=== PATIENT | female | born 1980 | race Caucasian/White ===

== ENCOUNTER 2016-08-07 17:12 | Emergency (ER) | payer OTHER | END 2016-08-07 18:25 | disposition home or self-care (01) | LOC: FER 17:12 | DX: S46.911A Strain of unspecified muscle, fascia and tendon at shoulder and upper arm level, right arm, initial encounter (principal); F17.210 Nicotine dependence, cigarettes, uncomplicated | CPT/HCPCS: 73030; J1885 ==

== ENCOUNTER 2020-05-30 10:26 | Emergency (ER) | payer OTHER ==
[2020-05-30 11:25] LABS: BASOPHIL 0.4 % (0-2); EOSINOPHIL 1.8 % (0-5); HCT 45.1 % (37.0-47.0); HGB 14.9 g/dl (12.5-16.0); LYMPHOCYTE 14.5 % (15-48); MCH 28.8 pg (25.0-31.0); MCV 87.1 fL (78.0-100.0); MONOCYTE 8.9 % (0-12); MPV 10.7 fL (6.0-9.5); NRBC 0; PLT 236 K/uL (150-400); RBC 5.18 M/uL (4.20-5.40); RDW 14.5 % (11.5-14.0); WBC 12.1 K/uL (4.0-10.5)
[2020-05-30 11:49] LABS: ALBUMIN 3.9 g/dL (3.4-5.0); BILIRUBIN - TOTAL 0.3 mg/dL (0.2-1.0); BUN/CREAT RATIO (CALC) 20.3 RATIO; CREATININE 0.64 mg/dL (0.51-0.95); GLOBULIN (CALCULATION) 3.4 g/dL; POTASSIUM 4.4 mmol/L (3.5-5.1); TOTAL PROTEIN 7.3 g/dL (6.4-8.2)
== END 2020-05-30 13:37 | disposition home or self-care (01) ==
LOC: FER 10:26
PROVIDERS: Emergency Medicine
DX: R07.9 Chest pain, unspecified (principal); R11.0 Nausea; F17.210 Nicotine dependence, cigarettes, uncomplicated; Z88.5 Allergy status to narcotic agent; Z88.8 Allergy status to other drugs, medicaments and biological substances
CPT/HCPCS: 36415; 71045; 80053; 84484; 85025; 85379; 93005

== ENCOUNTER 2020-07-31 00:35 | Emergency (ER) | payer OTHER ==
[2020-07-31] MEDS ORDERED: KEFLEX750 MG PO (01:32)
== END 2020-07-31 01:55 | disposition home or self-care (01) ==
LOC: FER 00:35
DX: G89.18 Other acute postprocedural pain (principal); M79.672 Pain in left foot; M25.572 Pain in left ankle and joints of left foot; F17.210 Nicotine dependence, cigarettes, uncomplicated; Z98.890 Other specified postprocedural states
CPT/HCPCS: 73630